=== PATIENT | female | born 1975 | race Caucasian/White ===

== ENCOUNTER 2023-07-10 14:18 | Emergency (ER) | payer OTHER, SELFPAY ==
[2023-07-10 14:22] VITALS: BP 132/75; PULSE 80; RESP 18; TEMP 36.6; O2SAT 97
--- NOTE | 2023-07-10 14:51 | ED_ITS ---
HPI - Skin/Abscess/Foreign Bdy General Chief complaint: Skin/Abscess/Foreign Body Stated complaint: Fishing hook in skin above nose Time Seen by Provider: 07/10/23 14:23 History of Present Illness HPI narrative: This 47-year-old female comes in with a fishhook lodged in the bridge of her nose and angled ordered the right nasolacrimal duct. He she does not report any other injury. Related Data Home Medications Medication Instructions Recorded Confirmed No Known Home Medications 07/10/23 07/10/23 Allergies Allergy/AdvReac Type Severity Reaction Status Date / Time No Known Drug Allergies Allergy Verified 07/10/23 14:26 Review of Systems Status of ROS: Reports: 10 or more systems reviewed and unremarkable except as noted in History and below Narrative: Constitutional: No fevers, no weight gain or loss. Eyes: No discharge. No vision changes. HENT: No congestion, no sore throat, no ear pain. Cardiovascular: No chest pain, no palpitations. Respiratory: No shortness of breath, no wheezes, no cough. Gastrointestinal: No abdominal pain, no vomiting, no diarrhea. Genitourinary: No dysuria, no hematuria. Musculoskeletal: Normal range of motion. Skin: No rashes, no pruritis. Neurological: No dizziness, weakness, sensory change, speech change. Endo/Heme/Allergies: No bruising or bleeding. No polydipsia. Pysch: no suicidality, no anxiety, no insomnia. All other systems reviewed and are negative. Exam Narrative: Exam Narrative: Constitutional: Well-developed, well-nourished, no acute distress. HEENT: [place] is penetrated into the skin over the bridge of her nose and ankle toward the right eye. Neck: Normal range of motion. Nontender. Supple. Heart: Intact distal pulses. Lungs: No chest discomfort. No wheezes, rhonchi, or rales. Abdomen: Nontender. Back: Normal range of motion. Extremities: Normal range of motion. No injury. Skin: Intact. No rash. Warm. No erythema or pallor. Neurologic: No altered sensation. No weakness. Alert and oriented. Psychiatric: No suicidality. No anxiety or depression. No insomnia. Nursing notes and vitals signs are reviewed. Const: Vital Signs, click to edit/add: Vital Signs - 24 hr 07/10/23 14:22 Temperature 97.9 F Pulse Rate [Right Pulse Oximeter] 80 Respiratory Rate 18 Blood Pressure [Ri ght Upper Arm] 132/75 Pulse Oximetry 97 Oxygen Delivery Me thod Room Air Course Vital Signs Vital signs: Initial Vital Signs Temperature 97.9 F 07/10/23 14:22 Temperature Source Temporal Artery Scan 07/10/23 14:22 Pulse Rate 80 07/10/23 14:22 Respiratory Rate 18 07/10/23 14:22 Blood Pressure 132/75 07/10/23 14:22 Blood Pressure Mean 94 07/10/23 14:22 Blood Pressure Position Sitting 07/10/23 14:22 Pulse Oximetry 97 07/10/23 14:22 Oxygen Delivery Method Room Air 07/10/23 14:22 Vital Signs Temperature 97.9 F 07/10/23 14:22 Pulse Rate 80 07/10/23 14:22 Respiratory Rate 18 07/10/23 14:22 Blood Pressure 132/75 07/10/23 14:22 Pulse Oximetry 97 07/10/23 14:22 Oxygen Delivery Method Room Air 07/10/23 14:22 Temperature 97.9 F 07/10/23 14:22 Pulse Rate 80 07/10/23 14:22 Respiratory Rate 18 07/10/23 14:22 Blood Pressure 132/75 07/10/23 14:22 Pulse Oximetry 97 07/10/23 14:22 Oxygen Delivery Method Room Air 07/10/23 14:22 MDM - Skin/Abscess/Foreign Bdy MDM Narrative Medical decision making narrative: This patient comes in to have a fishhook removed from her nose. After anesthesia with 1% lidocaine with epinephrine I attempted to remove the hook but noticed that the edge of the hook is approximately 1 cm into her skin and angled toward her right eye. I was unable to simply remove the hook as the joseph was catching along the way. I did use a 10. Blade to release the hook making a laceration in this area a bit less than 1 cm in length. The wound was cleansed after the hook was removed and Dermabond was applied for wound repair. Discharge Plan Discharge Clinical Impression: Foreign body (FB) in soft tissue Patient Disposition: Home, Self-Care Condition: Improved Additional Instructions: Continue current plans. Keep wound clean and dry. Follow up with MD or return if worsening. Prescriptions: No Action No Known Home Medications [facility] Inst[facility]
== END 2023-07-10 15:21 | disposition home or self-care (01) ==
LOC: ED 15:10
PROVIDERS: Emergency Provider Emergency Medicine Emergency Medical Services
DX: S01.84XA Puncture wound with foreign body of other part of head, initial encounter (principal); W26.8XXA Contact with other sharp object(s), not elsewhere classified, initial encounter
CPT/HCPCS: 10120; 99283; 99284